=== PATIENT | female | born 1965 | race Caucasian/White ===

== ENCOUNTER → 2016-08-19 | Outpatient (CLI) | payer BC ==
--- NOTE | ~2016-08-19 | MY11 ---
[facility] A Service [facility] RADIOLOGY TEXT RESULTS PATIENT: JAI LOERA LOCATION: [facility] : 63 UNIT #: [id number] AGE: [address]: Abdoul Cuevas MD SEX: F ORDER DR: [id number] [facility]. [place], [place] [address] [id number] O MR#: [id number] Acc #: [id number] NAME: JAI LOERA. : 1965 SEX: F STUDY DATE/TIME: 08/19/2016 8:53 UNIT: [facility] ROOM: STUDY DESCRIPTION: MY Mammogram Screening Dig Esdras Attending Physician: Abdoul Cuevas M.D. Ordering Physician: Abdoul Cuevas M.D. Primary Care Physician: Abdoul Cuevas M.D. MEDICAL IMAGING REPORT This report is preliminary unless electronic signature is present EXAM Bilateral digital screening mammogram with CAD, 08/19/2016 HISTORY Family history of breast cancer in a cousin at the age 58. No personal history of breast cancer or current complaints. COMPARISON Bilateral diagnostic mammogram and ultrasound 04/13/2013. Bilateral screening mammogram 11/11/2005. Left breast diagnostic ultrasound 12/06/2005. FINDINGS CC and MLO views were obtained of each breast utilizing digital technique and reviewed with an FDA-approved CAD device. The previously described prominent duct persists potential complex cystic lesion in the subareolar 10 o'clock left breast on the 2013 diagnostic ultrasound has no clear diagnostic mammographic correlate today. Heterogeneously dense fibroglandular tissue is present bilaterally. No new dominant nodule or mass lesion is identified. No architectural distortion is seen. There are some benign calcifications within each breast, but no suspicious clustered microcalcifications are identified. No architectural distortion features. IMPRESSION Routine bilateral screening mammogram is recommended in 1 year. Patients over the age of 40 are entered into a reminder system with target due date for the next mammogram. A result letter will also be sent to the patient. [facility] A Service [facility] RADIOLOGY TEXT RESULTS PATIENT: JAI LOERA LOCATION: [facility] : 63 UNIT #: [id number] AGE: [address]: Abdoul Cuevas MD SEX: F ORDER DR: SHAEADS: 2 Benign Finding Dictated by... Katherine Lopez M.D. THIS IS AN ELECTRONICALLY VERIFIED REPORT Katherine Lopez M.D. at 08/20/2016 7:08 AM DHIRAJ/[email or web address] TD: 08/19/2016 12:58 JOB #: [id number] MEDICAL IMAGING REPORT Page 1 of 1 COPY
== END | disposition home or self-care (01) ==
LOC: CWCC 08:41
DX: Z12.31 Encounter for screening mammogram for malignant neoplasm of breast (principal); Z80.3 Family history of malignant neoplasm of breast
CPT/HCPCS: G0202